=== PATIENT | female | born 1995 | race Two or more races ===

== ENCOUNTER 2017-05-13 20:51 | Emergency (ER) | payer MEDICAID, OTHER ==
[~2017-05-13] VITALS: Ht 162.6 cm; Wt 76.0 kg
[~2017-05-13 20:51] MED LIST: PRENAT PO
[2017-05-13 20:54] VITALS: Ht 162.6 cm; Wt 76.0 kg
[2017-05-13 23:13] LABS: URINE BLOOD (Dip) POC 3+ (NEGATIVE)
[2017-05-13 23:27] LABS: BASOPHILS % 0.4 % (0.0-2.0); EOSINOPHILS # 0.2 10^3/ul (0.0-0.5); EOSINOPHILS % 2.2 % (0.0-7.0); HEMATOCRIT 37.7 % (37.0-47.0); HEMOGLOBIN 12.4 g/dl (12.0-16.0); LYMPHOCYTES # 2.6 10^3/ul (0.8-2.9); LYMPHOCYTES % 33.2 % (18.0-55.0); MEAN CORPUSCULAR HEMOGLOBIN 28.8 pg (29.0-33.0); MEAN CORPUSCULAR HGB CONC 32.9 g/dl (32.0-37.0); MEAN CORPUSCULAR VOLUME 87.7 fl (72.0-104.0); MEAN PLATELET VOLUME 9.8 fl (7.4-10.4); MONOCYTE # 0.7 10^3/ul (0.3-0.9); MONOCYTES % 9.5 % (0.0-13.0); NEUTROPHIL # 4.2 10^3/ul (1.6-7.5); NEUTROPHILS % 54.4 % (30.0-74.0); PLATELET COUNT 291 10^3/UL (140-415); WHITE BLOOD COUNT 7.7 10^3/ul (4.8-10.8)
[2017-05-13 23:48] LABS: ALBUMIN 4.3 g/dl (3.3-4.9); ALBUMIN/GLOBULIN RATIO 1.19; BILIRUBIN,INDIRECT 0.1 mg/dl (0-1.1); BILIRUBIN,TOTAL 0.1 mg/dl (0.2-1.3); CALCIUM 9.6 mg/dl (8.4-10.2); CREATININE 0.64 mg/dl (0.44-1.00); TOTAL PROTEIN 7.9 g/dl (6.1-8.1)
--- NOTE | 2017-05-13 23:48 | ERD ---
ER Documentation Chief Complaint Date/Time DATE: 05/13/17 TIME: 23:45 Chief Complaint vag bleeding a3 weeks, denies HPI 21-year-old female complaining of vaginal bleeding 3 weeks. Received a copper IUD 3 weeks ago. Her vaginal bleeding started shortly after that. She is changing 1 pad an hour for the last 3 weeks. Patient reports shortness of breath on exertion, but denies fatigue. His chest pain or palpitations. Denies fever or chills. Denies dysuria. Denies pelvic pain. ROS All systems reviewed and are negative except as per history of present illness. Medications Home Meds Reported Medications Multivit/Min/Fol Ac/Iron/Pren* ( S*) 1 Tab Tab, 1 TAB PO DAILY, TAB 07/27/16 Allergies Allergies: Coded Allergies: No Known Allergy (Unverified , 07/27/16) PMhx/Soc Medical and Surgical Hx: pt denies Medical Hx, pt denies Surgical Hx Hx Alcohol Use: No Hx Substance Use: No Hx Tobacco Use: No Smoking Status: Never smoker Physical Exam Vitals Vital Signs Date Time Temp Pulse Resp B/P Pulse Ox O2 Delivery O2 Flow Rate FiO2 05/13/17 20:54 100.5 95 20 128/70 98 Physical Exam General: Well-developed, well-nourished, conscious and coherent, in no distress Skin: Warm and dry without rash, good texture and turgor Head: Normocephalic without evidence of trauma Eyes: Sclera and conjunctivae normal; pupils equal, round, and reactive to light; extraocular movements are intact Chest: Normal AP diameter. Good expansion without retractions. Nontender. Lungs are clear to auscultate bilaterally with good tidal volume Heart: Regular rate and rhythm. No murmur, rub, or gallops heard Abdomen: Soft and nontender without masses, guarding, or rebound. Bowel sounds are active. No hepatosplenomegaly Back: Without spinal or CVA tenderness Pelvis: Nontender to palpation and stable to compression Extremities: Full range of motion. Good strength bilaterally. No clubbing, cyanosis, or edema. Peripheral pulses are intact. Sensation intact Neuro: Alert and oriented 4, GCS 15. Cranial nerves grossly intact. Motor and sensory exams nonfocal. Moves all extremities. Speech clear. Gait normal Result Diagram: 05/13/172 05/13/172311 Results 24 hrs Laboratory Tests Test 05/13/17 23:12 05/13/17 23:21 White Blood Count 7.710^3/ul Red Blood Count 4.3010^6/ul Hemoglobin 12.4g/dl Hematocrit 37.7% Mean Corpuscular Volume 87.7fl Mean Corpuscular Hemoglobin 28.8pg Mean Corpuscular Hemoglobin Concent 32.9g/dl Red Cell Distribution Width 13.0% Platelet Count 71023^3/UL Mean Platelet Volume 9.8fl Neutrophils % 54.4% Lymphocytes % 33.2% Monocytes % 9.5% Eosinophils % 2.2% Basophils % 0.4% Nucleated Red Blood Cells % 0.0/100WBC Neutrophils # 4.210^3/ul Lymphocytes # 2.610^3/ul Monocytes # 0.710^3/ul Eosinophils # 0.210^3/ul Basophils # 0.010^3/ul Nucleated Red Blood Cells # 0.010^3/ul Sodium Level 139mmol/L Potassium Level 4.0mmol/L Chloride Level 105mmol/L Carbon Dioxide Level 25mmol/L Anion Gap 13 Blood Urea Nitrogen 17mg/dl Creatinine 0.64mg/dl Glucose Level 91mg/dl Calcium Level 9.6mg/dl Total Bilirubin 0.1mg/dl Direct Bilirubin 0.00mg/dl Indirect Bilirubin 0.1mg/dl Aspartate Amino Transf (AST/SGOT) 27IU/L Alanine Aminotransferase (ALT/SGPT) 54IU/L Alkaline Phosphatase 91IU/L Total Protein 7.9g/dl Albumin 4.3g/dl Globulin 3.60g/dl Albumin/Globulin Ratio 1.19 Bedside Urine pH (LAB) 6.0 Bedside Urine Protein (LAB) Trace Bedside Urine Glucose (UA) Negative Bedside Urine Ketones (LAB) Negative Bedside Urine Blood 3+ Bedside Urine Nitrite (LAB) Negative Bedside Urine Leukocyte Esterase (L Negative PROCEDURE: US Non-OB Pelvis. CLINICAL INDICATION: Vaginal bleeding. TECHNIQUE: Multiple sonographic images of the pelvis were obtained utilizing a transabdominal and endovaginal technique. The images were reviewed on a PACS workstation. COMPARISON: None. FINDINGS: The uterus is visualized and measures 10.1 x 3.7 x 5.1 cm. The endometrial echo complex is normal and measures 7 mm. There is an intrauterine device in appropriate position within the endometrial canal. The right ovary measures 4.0 x 2.3 x 1.9 cm. The left ovary measures 3.5 x 1.4 x 2.3 cm. Blood flow is demonstrated to both ovaries. There is a tubular structure in the left adnexa. There is a small volume of free fluid. IMPRESSION: 1. Intrauterine device in place within the endometrial canal. 2. Normal appearance of the ovaries. 3. Tubular structure in the left adnexa, possibly a hydrosalpinx. 4. Small volume free pelvic fluid. RPTAT: HTAR .Raji Joshi MD, MD Date Time Electronically viewed and signed by .Raji Joshi MD, on 05/14/2017 00:25 .R/ CC: DHAVAL GUIDO. INVENTORY CHECKER Procedures/MDM Well-appearing 21-year-old female presented to ED with vaginal bleeding 3 weeks. CBC and CMP are unremarkable. Patient does not have anemia. Urine dip is 3+ blood, likely due to vaginal bleeding, otherwise negative. Urine is negative. Pelvic ultrasound showed intrauterine device in place within the endometrial canal, normal appearance of the ovaries, tubular structure in the left adnexa possibly hydrosalpinx, small amount of free pelvic fluid. I doubt ectopic , or ruptured ovarian cyst. I informed patient of the testing results, and advised patient to follow-up with her PCP or digital account coordinator. I also counseled the patient that it is not uncommon to have irregular vaginal bleeding with a copper IUD. Patient appears well, stable for discharge and outpatient management. Medical decision making shared with patient and family. Education provided to patient and family. Patient and family expressed understanding of the plan. Medications on discharge: None. Follow-up: Primary care provider in 2-3 days or return to ED if worse. Disclaimer: Inadvertent spelling and grammatical errors are likely due to EHR/ dictation software use and do not reflect on the overall quality of patient care. Also, please note that the electronic time recorded on this note does not necessarily reflect the actual time of the patient encounter. Departure Diagnosis: Primary Impression: Excessive vaginal bleeding Condition: Stable DHAVAL GUIDO NP May 13, 2017 23:48
--- NOTE | 2017-05-14 00:25 | RADRPT ---
PROCEDURE: US Non-OB Pelvis. CLINICAL INDICATION: Vaginal bleeding. TECHNIQUE: Multiple sonographic images of the pelvis were obtained utilizing a transabdominal and endovaginal technique. The images were reviewed on a PACS workstation. COMPARISON: None. FINDINGS: The uterus is visualized and measures 10.1 x 3.7 x 5.1 cm. The endometrial echo complex is normal an d measures 7 mm. There is an intrauterine device in appropriate position within the endometrial katie l. The right ovary measures 4.0 x 2.3 x 1.9 cm. The left ovary measures 3.5 x 1.4 x 2.3 cm. Blood flow is demonstrated to both ovaries. There is a tubular structure in the left adnexa. There is a small volume of free fluid. IMPRESSION: 1. Intrauterine device in place within the endometrial canal. 2. Normal appearance of the ovaries. 3. Tubular structure in the left adnexa, possibly a hydrosalpinx. 4. Small volume free pelvic fluid. RPTAT: HTAR .Raji Joshi MD, Date Time Electronically viewed and signed by .Raji Joshi MD, on 05/14/2017 00:25 .R/
[2017-05-14] MEDS ORDERED: ACET500C5 PO (01:12)
== END 2017-05-14 01:14 | disposition home or self-care (01) ==
LOC: FTE 20:51
DX: N93.8 Other specified abnormal uterine and vaginal bleeding (principal)
CPT/HCPCS: 36415; 76830; 76856; 80053; 81003; 85025; Z7502

== ENCOUNTER 2017-05-15 13:51 | Inpatient (IN) | payer MEDICAID ==
[~2017-05-15] VITALS: Ht 193 cm; Wt 74.4 kg
[~2017-05-15 13:51] MED LIST changes: +ACET500C5 PO
[2017-05-15 15:33] LABS: BASOPHILS % 0.3 % (0.0-2.0); EOSINOPHILS % 0.2 % (0.0-7.0); HEMATOCRIT 36.1 % (37.0-47.0); LYMPHOCYTES # 1.6 10^3/ul (0.8-2.9); LYMPHOCYTES % 13.2 % (18.0-55.0); MEAN CORPUSCULAR HEMOGLOBIN 29.1 pg (29.0-33.0); MEAN CORPUSCULAR HGB CONC 33.2 g/dl (32.0-37.0); MEAN CORPUSCULAR VOLUME 87.6 fl (72.0-104.0); MEAN PLATELET VOLUME 9.9 fl (7.4-10.4); MONOCYTE # 0.6 10^3/ul (0.3-0.9); MONOCYTES % 5.1 % (0.0-13.0); NEUTROPHIL # 9.5 10^3/ul (1.6-7.5); NEUTROPHILS % 80.9 % (30.0-74.0); PLATELET COUNT 292 10^3/UL (140-415); RED BLOOD COUNT 4.12 10^6/ul (4.20-5.40); RED CELL DISTRIBUTION WIDTH 13.1 % (11.5-14.5); WHITE BLOOD COUNT 11.8 10^3/ul (4.8-10.8)
[2017-05-15 15:58] LABS: ADD UMIC YES; UR ASCORBIC ACID NEGATIVE (NEGATIVE); UR BACTERIA FEW /HPF (NONE SEEN); UR BILIRUBIN (Dip) NEGATIVE (NEGATIVE); UR BLOOD (Dip) 3+ mg/dL (NEGATIVE); UR CLARITY SLIGHTLY CLOUDY (CLEAR); UR COLOR YELLOW (YELLOW); UR GLUCOSE (Dip) NEGATIVE (NEGATIVE); UR KETONES (Dip) NEGATIVE (NEGATIVE); UR LEUKOCYTE ESTERASE (Dip) 2+ Leu/ul (NEGATIVE); UR NITRITE (Dip) NEGATIVE (NEGATIVE); UR RBC > 182 /HPF (0-5); UR SPECIFIC GRAVITY (Dip) 1.019 (1.003-1.030); UR SQUAMOUS EPITHELIAL CELL FEW /HPF (FEW); UR TOTAL PROTEIN (Dip) 2+ mg/dl (NEGATIVE); UR UROBILINOGEN (Dip) 2+ mg/dL (NEGATIVE)
--- NOTE | 2017-05-15 16:22 | RADRPT ---
PROCEDURE: US Pelvis. CLINICAL INDICATION: Pelvic pain. Post IUD removal. Vaginal bleeding. LAST MENSTRUAL PERIOD: TECHNIQUE: Multiple sonographic images of the pelvis were obtained utilizing a transabdominal and endovaginal technique. COMPARISON: 05/13/2017 FINDINGS: The uterus is visualized and measures 8.5 x 3.5 x 5.4 cm. Intrauterine device has been removed. The endometrial echo complex is normal and measures 2.1 mm. Small amount of echogenic pelvic free fluid consistent with blood. Left adnexal echogenic non vascular fluid collection consistent with a hemato ma measuring 6.4 x 2.6 x 5.7 cm. The right ovary has a normal echotexture and measures 3.6 x 2.0 x 1.7 cm. The left ovary has a norm al echotexture and measures 3.6 x 2.7 x 2.2 cm. No adnexal masses are noted. Normal bilateral ovari an blood flow. IMPRESSION: Small amount of echogenic free fluid in the pelvis consistent with blood. Echogenic fluid collection left adnexa measuring 6.4 cm consistent with a hematoma. Intrauterine device is then removed. Normal bilateral ovarian blood flow. RPTAT:AAJJ Physician Geovanny Date Time Electronically viewed and signed by Physician Geovanny on 05/15/2017 16:22 /
[2017-05-15 17:45] LABS: ALBUMIN 4.2 g/dl (3.3-4.9); ALBUMIN/GLOBULIN RATIO 1.05; BILIRUBIN,INDIRECT 0.2 mg/dl (0-1.1); BILIRUBIN,TOTAL 0.2 mg/dl (0.2-1.3); CALCIUM 9.2 mg/dl (8.4-10.2); CREATININE 0.62 mg/dl (0.44-1.00); TOTAL PROTEIN 8.2 g/dl (6.1-8.1)
[2017-05-15] MEDS ORDERED: IOHEXOL 300MG/ML 150 ML BTL ONE (18:24)
[2017-05-15] MEDS ORDERED: SOD CHLORIDE 0.9% 100 ML ONE (18:24)
--- NOTE | 2017-05-15 18:46 | ERD ---
ER Documentation Chief Complaint Date/Time DATE: 05/15/17 TIME: 18:42 Chief Complaint removed iud today, wants us HPI Patient is 21-year-old female who presents to the emergency department for concerns concerns of pelvic pain and vaginal bleeding. Patient states she saw her primary care physician today who advised her to come in for an ultrasound after having an IUD removed today. Patient initially had an IUD placed on . Given that patient has had bleeding for the last month, she went to see her primary care today to remove the IUD. Denies any fevers however she admits to chills. Denies nausea, vomiting or diarrhea. States she uses approximately 3-5 pads per day. Patient is today she has changed her pad twice thus far. Patient denies any dizziness or lightheadedness. Of note, patient was seen here 2 days ago. At that time patient had blood work and ultrasound done. Ultrasound findings show: 1. Intrauterine device in place within the endometrial canal. 2. Normal appearance of the ovaries. 3. Tubular structure in the left adnexa, possibly a hydrosalpinx. 4. Small volume free pelvic fluid. ROS All systems reviewed and are negative except as per history of present illness. Medications Home Meds Active Scripts Acetaminophen* (Tylophen*) 500 Mg Capsule, 1 CAP PO Q6H Y for PAIN AND OR ELEVATED TEMP, #20 CAP Prov:DHAVAL GUIDO SUSTAINABILITY ANALYST 05/14/17 Reported Medications Multivit/Min/Fol Ac/Iron/Pren* ( S*) 1 Tab Tab, 1 TAB PO DAILY, TAB 07/27/16 Allergies Allergies: Coded Allergies: No Known Allergy (Unverified , 07/27/16) PMhx/Soc Medical and Surgical Hx: pt denies Medical Hx, pt denies Surgical Hx Hx Alcohol Use: No Hx Substance Use: No Hx Tobacco Use: No Smoking Status: Never smoker Physical Exam Vitals Vital Signs Date Time Temp Pulse Resp B/P Pulse Ox O2 Delivery O2 Flow Rate FiO2 05/15/17 20:31 100.4 89 18 106/56 98 Room Air 05/15/17 13:53 98.1 90 18 108/58 99 Physical Exam GENERAL: Well-developed, well-nourished female. Appears in no acute distress. HEAD: Normocephalic, atraumatic. EYES: Pupils are equally reactive bilaterally. EOMs grossly intact. No conjunctival erythema. ENT: Moist mucous membranes. No uvula deviation. No kissing tonsils. NECK: Supple. No meningismus. Normal range of motion of the neck. LUNG: Clear to auscultation bilaterally. No rhonchi, wheezing, rales or coarse breath sounds. HEART: Regular rate and rhythm. No murmurs, rubs or gallops. ABDOMEN: No scars, ecchymosis or rashes noted. Soft and nondistended. Tender to palpation in the bilateral lower quadrants and suprapubic region. Positive bowel sounds in all four quadrants. No rebound tenderness, no guarding. (-) McBurney's point tenderness. No CVA tenderness. BACK: No midline tenderness. EXTREMITIES: Equal pulses bilaterally. No peripheral clubbing, cyanosis or edema. No unilateral leg swelling. NEUROLOGIC: Alert and oriented. Moving all four extremities without any difficulty. Normal speech. Steady gait. SKIN: Normal color. No pallor. Warm and dry. No rashes or lesions. Result Diagram: 05/15/17 1930 05/15/17 1708 Results 24 hrs Laboratory Tests Test 05/15/17 15:13 05/15/17 17:08 05/15/17 19:30 White Blood Count 11.810^3/ul 12.810^3/ul Red Blood Count 4.1210^6/ul 4.0110^6/ul Hemoglobin 12.0g/dl 11.0g/dl Hematocrit 36.1% 34.7% Mean Corpuscular Volume 87.6fl 86.5fl Mean Corpuscular Hemoglobin 29.1pg 27.4pg Mean Corpuscular Hemoglobin Concent 33.2g/dl 31.7g/dl Red Cell Distribution Width 13.1% 13.3% Platelet Count 93797^3/UL 37081^3/UL Mean Platelet Volume 9.9fl 9.9fl Neutrophils % 80.9% 68.6% Lymphocytes % 13.2% 22.6% Monocytes % 5.1% 7.4% Eosinophils % 0.2% 0.6% Basophils % 0.3% 0.4% Nucleated Red Blood Cells % 0.0/100WBC 0.0/100WBC Neutrophils # 9.510^3/ul 8.810^3/ul Lymphocytes # 1.610^3/ul 2.910^3/ul Monocytes # 0.610^3/ul 1.010^3/ul Eosinophils # 0.010^3/ul 0.110^3/ul Basophils # 0.010^3/ul 0.110^3/ul Nucleated Red Blood Cells # 0.010^3/ul 0.010^3/ul Urine Color YELLOW Urine Clarity SLIGHTLY CLOUDY Urine pH 8.0 Urine Specific [employer] 1.019 Urine Ketones NEGATIVEmg/dL Urine Nitrite NEGATIVEmg/dL Urine Bilirubin NEGATIVEmg/dL Urine Urobilinogen 2+mg/dL Urine Leukocyte Esterase 2+Yenny/ul Urine Microscopic RBC > 182/HPF Urine Microscopic WBC 69/HPF Urine Squamous Epithelial Cells FEW/HPF Urine Calcium Oxalate Crystals FEW/HPF Urine Bacteria FEW/HPF Urine Hemoglobin 3+mg/dL Urine Glucose NEGATIVEmg/dL Urine Total Protein 2+mg/dl Sodium Level 140mmol/L Potassium Level 4.0mmol/L Chloride Level 106mmol/L Carbon Dioxide Level 25mmol/L Anion Gap 13 Blood Urea Nitrogen 9mg/dl Creatinine 0.62mg/dl Glucose Level 111mg/dl Calcium Level 9.2mg/dl Total Bilirubin 0.2mg/dl Direct Bilirubin 0.00mg/dl Indirect Bilirubin 0.2mg/dl Aspartate Amino Transf (AST/SGOT) 24IU/L Alanine Aminotransferase (ALT/SGPT) 49IU/L Alkaline Phosphatase 102IU/L Total Protein 8.2g/dl Albumin 4.2g/dl Globulin 4.00g/dl Albumin/Globulin Ratio 1.05 Current Medications Medications (Trade) Dose Ordered Sig/Ravi Route PRN Reason Start Time Stop Time Status Last Admin Dose Admin IV Flush 10 ml 10 ml STK-MED ONCE .ROUTE 05/15/17 18:24 05/15/17 18:25 DC 05/15/17 18:31 Sodium Chloride (NS) 100 ml @ ud STK-MED ONCE .ROUTE 05/15/17 18:24 05/15/17 18:25 DC 05/15/17 18:31 Iohexol (Omnipaque 300mg/ ml) 150 ml STK-MED ONCE .ROUTE 05/15/17 18:24 05/15/17 18:25 DC 05/15/17 18:32 Acetaminophen (Tylenol Tab) 1,000 mg ONCE STAT PO 05/15/17 20:25 05/15/17 20:27 DC 05/15/17 20:33 IV Flush (NS 3 ml) 3 ml PER PROTOCOL IV 05/15/17 20:30 Morphine Sulfate 2 mg 2 mg Q4H PRN IV SEVERE PAIN LEVEL 7-10 05/15/17 20:30 Lactated Ringer's (Lr) 1,000 ml @ 125 mls/hr Q8H IV 05/15/17 20:30 Doxycycline Hyclate 100 mg 100 mg BID PO 05/15/17 21:00 Cefuroxime Sodium/ Sodium Chloride (Zinacef/NS) 50 ml @ 100 mls/hr Q8 IVPB 05/15/17 22:00 Procedures/MDM ED COURSE: The patient was stable throughout ED course. I kept the patient and/or family informed of laboratory and diagnostic imaging results throughout the ED course. DIAGNOSTIC IMAGING: Read by radiologist. Patient: HERNÁN SNIDER : 1995 Age: 21 Sex: F MR #: [id number] DOS: 05/15/17 1505 Ordering MD: KATHARINE ZARCO PA-C Location: [facility] Room/Bed: PROCEDURE: US Pelvis. CLINICAL INDICATION: Pelvic pain. Post IUD removal. Vaginal bleeding. LAST MENSTRUAL PERIOD: TECHNIQUE: Multiple sonographic images of the pelvis were obtained utilizing a transabdominal and endovaginal technique. COMPARISON: 05/13/2017 FINDINGS: The uterus is visualized and measures 8.5 x 3.5 x 5.4 cm. Intrauterine device has been removed. The endometrial echo complex is normal and measures 2.1 mm. Small amount of echogenic pelvic free fluid consistent with blood. Left adnexal echogenic non vascular fluid collection consistent with a hematoma measuring 6.4 x 2.6 x 5.7 cm. The right ovary has a normal echotexture and measures 3.6 x 2.0 x 1.7 cm. The left ovary has a normal echotexture and measures 3.6 x 2.7 x 2.2 cm. No adnexal masses are noted. Normal bilateral ovarian blood flow. IMPRESSION: Small amount of echogenic free fluid in the pelvis consistent with blood. Echogenic fluid collection left adnexa measuring 6.4 cm consistent with a hematoma. Intrauterine device is then removed. Normal bilateral ovarian blood flow. RPTAT:AAJJ Physician Geovanny Date Time Electronically viewed and signed by Garth Hardin Physician on 05/15/2017 16 :22 MH/ CC: KATHARINE ZARCO PA-C Patient: HERNÁN SNIDER : 1995 Age: 21 Sex: F MR #: [id number] DOS: 05/15/17 1644 Ordering MD: KATHARINE ZARCO PA-C Location: [facility] Room/Bed: PROCEDURE: CT Abdomen and Pelvis with contrast. CLINICAL INDICATION: Abdomen and pelvis pain. History of hematoma. TECHNIQUE: CT scan of the abdomen and pelvis with contrast was performed. The patient was scanned following the uncomplicated intravenous administration of 100 cc of Omnipaque-300. Coronal and sagittal reformatted images were obtained from the axial source images. Images were reviewed on a high- resolution PACS workstation. Total exam DLP is 590.19 mGy-cm. CTDIvol is 10.56 mGy. One or more of the following dose reduction techniques were used: Automated exposure control, adjustment of the mA and/or kV according to patient size, use of iterative reconstruction technique. COMPARISON: Pelvic ultrasound done earlier the same day which demonstrated an echogenic fluid collection in the left adnexa measuring 6.4 cm. FINDINGS: The lung bases are normal. There is no pleural effusion. The liver is normal in size and attenuation. There is no focal hepatic lesion. The gallbladder and bile ducts are normal. The spleen is normal in size. There is no focal splenic lesion. Both adrenals are normal with no enlargement or mass. The pancreas is unremarkable with no mass or evidence of pancreatitis. Both kidneys demonstrate normal contrast enhancement. There is no renal mass or hydronephrosis. The abdominal aorta is not dilated. There is no retroperitoneal lymphadenopathy or mass. There is no pelvic lymphadenopathy. There is a left adnexal fluid collection measuring 3.7 x 6.2 x 3.6 cm in AP, transverse, and cranial caudal dimensions. There is irregular peripheral enhancement. There is no other pelvic mass. The urinary bladder is distended but otherwise unremarkable. The periappendiceal region is unremarkable with no evidence of appendicitis. The bowel and mesentery are normal. There is no free fluid or free gas. The osseous structures are unremarkable with no fracture or lytic lesion. IMPRESSION: 1. Distended urinary bladder. 2. Left adnexal fluid collection measuring 3.7 x 6.2 x 3.6 cm, with irregular peripheral enhancement. This may be due to hematoma, abscess, or neoplasm. Clinical correlation and follow up is advised. 3. Otherwise unremarkable study. RPTAT: QQ .Andrew Hdz MD, MD Date Time Electronically viewed and signed by .Andrew Hdz MD, MD on 05/15/2017 19:12 .R/ CC: KATHARINE ZARCO PA-C PROCEDURES: None. MEDICATIONS GIVEN: Tylenol Patient tolerated medication well with no adverse reactions. MEDICAL DECISION MAKING: Patient is a 21-year-old female who presents to the ED for concerns of ongoing vaginal bleeding for 1 month and pelvic pain. Patient had her IUD removed this morning by her primary care physician. Patient returns to the ED for pelvic ultrasound per the request of her primary care physician. Vital signs were reviewed. Patient was afebrile on initial presentation. Patient was not hypoxic. Patient was hemodynamically stable. Blood work and imaging studies were obtained. Patient was noted to have a slight elevated white count of 12.8. Patient's hemoglobin was initially noted to be 12. test was negative. UA showed findings consistent with an acute infection. Pelvic ultrasound showed Small amount of echogenic free fluid in the pelvis consistent with blood. Echogenic fluid collection left adnexa measuring 6.4 cm consistent with a hematoma. Intrauterine device is then removed. Normal bilateral ovarian blood flow. I discussed these findings with the laborist search optimization analyst Dr. Gibson, who advised me to obtain a repeat CBC in [address] abdomen and pelvis with IV contrast. After 4 hours her hemoglobin was noted to be 11. CT abdomen and pelvis showed 1. Distended urinary bladder. 2. Left adnexal fluid collection measuring 3.7 x 6.2 x 3.6 cm, with irregular peripheral enhancement. This may be due to hematoma, abscess, or neoplasm. Clinical correlation and follow up is advised. 3. Otherwise unremarkable study. Dr. Gibson examined the patient here in the ER. It was determined that patient will be admitted given unclear etiology of the patient's pelvic pain and persistent vaginal bleeding. Low suspicion for perforated uterus, retained foreign body. Patient will need further monitoring of her hemoglobin levels. Patient will also be admitted for IV antibiotics. At this time, patient presentation is most consistent with pelvic pain, vaginal bleeding and UTI. Patient was stable throughout the ED course. I spoke to Dr. Howard, my supervising physician, who is aware of admission as well. Departure Diagnosis: Primary Impression: Vaginal bleeding Additional Impressions: Pelvic pain UTI (urinary tract infection) Urinary tract infection type: site unspecified Hematuria presence: with hematuria Qualified Code: N39.0 - Urinary tract infection with hematuria, site unspecified Condition: Stable Referrals: CAN BEDOYA MD (PCP) [facility] YOU HAVE RECEIVED A MEDICAL SCREENING EXAM AND THE RESULTS INDICATE THAT YOU DO NOT HAVE A CONDITION THAT REQUIRES URGENT TREATMENT IN THE EMERGENCY DEPARTMENT. FURTHER EVALUATION AND TREATMENT OF YOUR CONDITION CAN WAIT UNTIL YOU ARE SEEN IN YOUR DOCTORS OFFICE WITHIN THE NEXT 1-2 DAYS. IT IS YOUR RESPONSIBILITY TO MAKE AN APPOINTMENT FOR FOLOW-UP CARE. IF YOU HAVE A PRIMARY DOCTOR --you should call your primary doctor and schedule an appointment IF YOU DO NOT HAVE A PRIMARY DOCTOR YOU CAN CALL OUR PHYSICIAN REFERRAL HOTLINE AT IF YOU CAN NOT AFFORD TO SEE A PHYSICIAN YOU CAN CHOSE FROM THE FOLLOWING [facility]LY [facility] [address] [facility] [address] [facility] [facility] [address] [facility] [address] [facility] [address] [facility]. [facility]. [address] [facility]. [facility] YOU HAVE RECEIVED A MEDICAL SCREENING EXAM AND THE RESULTS INDICATE THAT YOU DO NOT HAVE A CONDITION THAT REQUIRES URGENT TREATMENT IN THE EMERGENCY DEPARTMENT. FURTHER EVALUATION AND TREATMENT OF YOUR CONDITION CAN WAIT UNTIL YOU ARE SEEN IN YOUR DOCTORS OFFICE WITHIN THE NEXT 1-2 DAYS. IT IS YOUR RESPONSIBILITY TO MAKE AN APPOINTMENT FOR FOLOW-UP CARE. IF YOU HAVE A PRIMARY DOCTOR --you should call your primary doctor and schedule and appointment IF YOU DO NOT HAVE A PRIMARY DOCTOR YOU CAN CALL OUR PHYSICIAN REFERRAL HOTLINE AT . IF YOU CAN NOT AFFORD TO SEE A PHYSICIAN YOU CAN CHOSE FROM THE FOLLOWING FORMERLY [facility] INSTITUTIONS: [facility] [address] [place] [address] [facility] [address] [place] [address] [facility] [address] [place] [address] [employer] [place] [address] [facility] [address] [place] [address] OFFICE FAX , [address] [place] [address] [address] [place] [address] [place] [address] [address] [address] [facility], [address], [facility] [address] [address] [address] [place] [address] [facility] [address] [place], [place] [id number] [address] [facility] [address] [address] [facility] [address] [address] [address] [facility] [address], [facility] [address] [address] [address] [place] [address] Additional Instructions: Call your primary care doctor/ OBGYN TOMORROW for an appointment during the next 1-2 days.See the doctor sooner or return here if your condition worsens before your appointment time. KATHARINE ZARCO PA-C May 15, 2017 18:46
--- NOTE | 2017-05-15 19:12 | RADRPT ---
PROCEDURE: CT Abdomen and Pelvis with contrast. CLINICAL INDICATION: Abdomen and pelvis pain. History of hematoma. TECHNIQUE: CT scan of the abdomen and pelvis with contrast was performed. The patient was scanned following the uncomplicated intravenous administration of 100 cc of Omnipaque-300. Coronal and sag ittal reformatted images were obtained from the axial source images. Images were reviewed on a high- resolution PACS workstation. Total exam DLP is 590.19 mGy-cm. CTDIvol is 10.56 mGy. One or more o f the following dose reduction techniques were used: Automated exposure control, adjustment of the m A and/or kV according to patient size, use of iterative reconstruction technique. COMPARISON: Pelvic ultrasound done earlier the same day which demonstrated an echogenic fluid thao ection in the left adnexa measuring 6.4 cm. FINDINGS: The lung bases are normal. There is no pleural effusion. The liver is normal in size and attenuation. There is no focal hepatic lesion. The gallbladder and bile ducts are normal. The spleen is normal in size. There is no focal splenic lesion. Both adrenals are normal with no enlargement or mass. The pancreas is unremarkable with no mass or evidence of pancreatitis. Both kidneys demonstrate normal contrast enhancement. There is no renal mass or hydronephrosis. The abdominal aorta is not dilated. There is no retroperitoneal lymphadenopathy or mass. There is no pelvic lymphadenopathy. There is a left adnexal fluid collection measuring 3.7 x 6.2 x 3 .6 cm in AP, transverse, and cranial caudal dimensions. There is irregular peripheral enhancement. T here is no other pelvic mass. The urinary bladder is distended but otherwise unremarkable. The periappendiceal region is unremarkable with no evidence of appendicitis. The bowel and mesentery are normal. There is no free fluid or free gas. The osseous structures are unremarkable with no fracture or lytic lesion. IMPRESSION: 1. Distended urinary bladder. 2. Left adnexal fluid collection measuring 3.7 x 6.2 x 3.6 cm, with irregular peripheral enhancemen t. This may be due to hematoma, abscess, or neoplasm. Clinical correlation and follow up is advised. 3. Otherwise unremarkable study. RPTAT: QQ .Andrew Hdz MD, Date Time Electronically viewed and signed by .Andrew Hdz MD, MD on 05/15/2017 19:12 .R/
[2017-05-15 19:42] LABS: BASOPHIL # 0.1 10^3/ul (0.0-0.1); BASOPHILS % 0.4 % (0.0-2.0); EOSINOPHILS # 0.1 10^3/ul (0.0-0.5); EOSINOPHILS % 0.6 % (0.0-7.0); HEMATOCRIT 34.7 % (37.0-47.0); LYMPHOCYTES # 2.9 10^3/ul (0.8-2.9); LYMPHOCYTES % 22.6 % (18.0-55.0); MEAN CORPUSCULAR HEMOGLOBIN 27.4 pg (29.0-33.0); MEAN CORPUSCULAR HGB CONC 31.7 g/dl (32.0-37.0); MEAN CORPUSCULAR VOLUME 86.5 fl (72.0-104.0); MEAN PLATELET VOLUME 9.9 fl (7.4-10.4); MONOCYTES % 7.4 % (0.0-13.0); NEUTROPHIL # 8.8 10^3/ul (1.6-7.5); NEUTROPHILS % 68.6 % (30.0-74.0); PLATELET COUNT 294 10^3/UL (140-415); RED BLOOD COUNT 4.01 10^6/ul (4.20-5.40); RED CELL DISTRIBUTION WIDTH 13.3 % (11.5-14.5); WHITE BLOOD COUNT 12.8 10^3/ul (4.8-10.8)
[2017-05-15] MEDS ORDERED: ACETAMINOPHEN 500 MG TAB PO STA (20:25)
[2017-05-15] MEDS ORDERED: NACL 0.9% 3 ML SYG IV SCH (20:30)
[2017-05-15] MEDS: LACTATED RINGER'S 1,000 ML IV SCH (20:30)
--- NOTE | 2017-05-15 20:53 | QN ---
Documentation Comment My independent concise history is abdominal pain. My pertinent physical exam findings are abdominal pain. The plan is admission to Dr. Gibson from [employer] [facility]. JOSELINE TURNER MD May 15, 2017 20:53
[2017-05-15] MEDS: CEFUROXIME IVPB SCH (21:30)
[2017-05-15] MEDS: SOD CHLORIDE 0.9% IVPB SCH (21:30)
[2017-05-15] MEDS: DOXYCYCLINE 100 MG TAB PO SCH (21:30)
[2017-05-15 21:42] VITALS: TEMP 98.4
[2017-05-15] MEDS: morphine 2 MG INJ IV PRN (22:24)
[2017-05-15] MEDS ORDERED: VITAMIN A & D 5 GM OINT PACKET TOP ONE (22:59)
[2017-05-15 23:00] VITALS: BP 102/61; RESP 20
[2017-05-15 23:05] VITALS: Ht 193 cm; Wt 74.4 kg
[2017-05-16] VITALS (20 sets, daily range): BP systolic 103–147; BP diastolic 55–94; PULSE 74–98; RESP 16–26
[2017-05-16 00:21] LABS: WHITE BLOOD COUNT 9.9 10^3/ul (4.8-10.8)
[2017-05-16 00:22] LABS: BASOPHILS % 0.4 % (0.0-2.0); EOSINOPHILS # 0.1 10^3/ul (0.0-0.5); EOSINOPHILS % 1.4 % (0.0-7.0); HEMOGLOBIN 10.7 g/dl (12.0-16.0); LYMPHOCYTES # 3.1 10^3/ul (0.8-2.9); LYMPHOCYTES % 31.6 % (18.0-55.0); MEAN CORPUSCULAR HEMOGLOBIN 28.3 pg (29.0-33.0); MEAN CORPUSCULAR HGB CONC 32.4 g/dl (32.0-37.0); MEAN CORPUSCULAR VOLUME 87.3 fl (72.0-104.0); MEAN PLATELET VOLUME 9.7 fl (7.4-10.4); MONOCYTE # 0.8 10^3/ul (0.3-0.9); MONOCYTES % 7.9 % (0.0-13.0); NEUTROPHIL # 5.8 10^3/ul (1.6-7.5); NEUTROPHILS % 58.4 % (30.0-74.0); PLATELET COUNT 263 10^3/UL (140-415); RED BLOOD COUNT 3.78 10^6/ul (4.20-5.40); RED CELL DISTRIBUTION WIDTH 13.2 % (11.5-14.5)
[2017-05-16] MEDS: LACTATED RINGER'S 1,000 ML IV SCH ×4 (04:30→20:30)
[2017-05-16] MEDS: CEFUROXIME IVPB SCH ×3 (05:21→22:36)
[2017-05-16] MEDS: SOD CHLORIDE 0.9% IVPB SCH ×3 (05:21→22:36)
[2017-05-16 08:21] LABS: BASOPHILS % 0.5 % (0.0-2.0); EOSINOPHILS # 0.1 10^3/ul (0.0-0.5); EOSINOPHILS % 1.6 % (0.0-7.0); HEMATOCRIT 34.1 % (37.0-47.0); HEMOGLOBIN 10.9 g/dl (12.0-16.0); LYMPHOCYTES # 2.3 10^3/ul (0.8-2.9); LYMPHOCYTES % 25.9 % (18.0-55.0); MEAN CORPUSCULAR HEMOGLOBIN 28.2 pg (29.0-33.0); MEAN CORPUSCULAR VOLUME 88.1 fl (72.0-104.0); MEAN PLATELET VOLUME 9.7 fl (7.4-10.4); MONOCYTE # 0.7 10^3/ul (0.3-0.9); MONOCYTES % 7.6 % (0.0-13.0); NEUTROPHIL # 5.6 10^3/ul (1.6-7.5); NEUTROPHILS % 64.1 % (30.0-74.0); PLATELET COUNT 265 10^3/UL (140-415); RED BLOOD COUNT 3.87 10^6/ul (4.20-5.40); RED CELL DISTRIBUTION WIDTH 13.2 % (11.5-14.5); WHITE BLOOD COUNT 8.8 10^3/ul (4.8-10.8)
[2017-05-16] MEDS: DOXYCYCLINE 100 MG TAB PO SCH ×2 (09:23→20:41)
--- NOTE | 2017-05-16 12:50 | QN ---
Documentation Comment 21 yo with 3x4 cm hemorragic cyst vs TA vs hydrosalpix vs TOA VS stable GEn NAD Abd soft NT ND Genitalia Deffered CT and ultrasound reviewed --->close Observation --->continue Antibiotics --->repeat CT scan tomorrow and possible discharge CRISELDA MENDIETA M.D. May 16, 2017 12:50
--- NOTE | 2017-05-16 13:27 | QN ---
Documentation Comment 21 yo with 3x4x 6 cm left adnexal mass and collection admitted last night in [employer] [facility] VS stable GEn NAD Abd soft Left lower quadrant tenderness +Rebound Genitalia Deffered CT and ultrasound reviewed --->NPO and Oncall to OR (possible diagnosis of hemorrhagic cyst vs torsion vs Abscess --->Consent for laparoscopy CRISELDA MENDIETA M.D. May 16, 2017 13:27
[2017-05-16] MEDS ORDERED: FENTAnyl 50 MCG/ML VIAL IV PRN (14:30)
[2017-05-16] MEDS ORDERED: ONDANSETRON 4 MG INJ IV PRN (14:30)
[2017-05-16] MEDS ORDERED: HYDROmorphONE (0.2 MG/ML) 10ML SYG IV PRN ×2 (14:30)
[2017-05-16] MEDS ORDERED: OXYCODONE/ACETAMINOPHEN (5/325) TAB PO PRN ×2 (14:30)
[2017-05-16] MEDS ORDERED: PROCHLORPERAZINE 10 MG INJ IV PRN (14:30)
[2017-05-16] MEDS ORDERED: DIPHENHYDRAMINE 50 MG INJ IV PRN (14:30)
[2017-05-16] MEDS ORDERED: MEPERIDINE 25 MG INJ IV PRN (14:30)
[2017-05-16] MEDS ORDERED: FENTAnyl 50 MCG/ML VIAL ONE ×2 (14:45→16:13)
[2017-05-16] MEDS ORDERED: PROPOFOL 20 ML ONE (14:45)
[2017-05-16] MEDS ORDERED: LIDOCAINE 2% (SDV) 5 ML INJ ONE (14:45)
[2017-05-16] MEDS ORDERED: MIDAZOLAM 1 MG/ML 2 ML INJ ONE (14:45)
[2017-05-16] MEDS ORDERED: SUCCINYLCHOLINE CHLORIDE 100 MG/5 ML SYG IV ONE (14:45)
[2017-05-16] MEDS ORDERED: METOCLOPRAMIDE 10 MG INJ ONE (15:51)
[2017-05-16] MEDS ORDERED: ONDANSETRON 4 MG INJ ONE (15:51)
[2017-05-16] MEDS ORDERED: PHENYLephrine (100 MCG/ML) 5ML SYG ONE (15:59)
[2017-05-16] MEDS ORDERED: ROCURONIUM 50 MG INJ ONE (16:00)
[2017-05-16] MEDS ORDERED: DEXAMETHASONE 4 MG/ML 1 ML INJ ONE (16:36)
[2017-05-16] MEDS ORDERED: SUGAMMADEX SODIUM 200 MG/2 ML VIAL IV ONE (16:43)
[2017-05-16] MEDS ORDERED: SURGIFOAM POWDER 1 GM KIT ONE (16:44)
[2017-05-16] MEDS ORDERED: THROMBIN 5000 UNIT VIAL ONE (16:44)
--- NOTE | 2017-05-16 17:26 | OPPN ---
Date/Time of Note Date/Time of Note DATE: 05/16/17 TIME: 17:20 Operative Report Preoperative Diagnosis Possible Left Ovarian torsion,Possible Left TOA Postoperative Diagnosis Left Tuboovarian abscess.Left Hydrosalpinx Operation/Procedure Performed Fransico Surgeon see signature line executive personal assistant Tech Anesthesia: general Estimated blood loss: 0 - 10 ml's Transfusion Required none Specimen Left Fallopian tube and abscess Grafts/Implants none Complications none CRISELDA MENDIETA M.D. May 16, 2017 17:26
[2017-05-16] MEDS: morphine 2 MG INJ IV PRN (18:33)
[2017-05-17] VITALS: BP 117/63; RESP 19
[2017-05-17] MEDS: LACTATED RINGER'S 1,000 ML IV SCH ×5 (02:18→20:30)
[2017-05-17] MEDS: morphine 2 MG INJ IV PRN ×3 (02:18→17:39)
[2017-05-17 03:47] VITALS: BP 123/69; RESP 19
[2017-05-17] MEDS ORDERED: OXYCODONE/ACETAMINOPHEN (5/325) TAB PO PRN (04:00)
[2017-05-17] MEDS: OXYCODONE/ACETAMINOPHEN (5/325) TAB PO PRN ×3 (04:02→22:21)
[2017-05-17] MEDS: SOD CHLORIDE 0.9% IVPB SCH ×3 (05:37→21:37)
[2017-05-17] MEDS: CEFUROXIME IVPB SCH ×3 (05:37→21:37)
--- NOTE | 2017-05-17 07:11 | HP ---
DATE OF ADMISSION: 05/15/2017 HISTORY OF PRESENT ILLNESS: The patient is a 21-year-old, G2, P2, last menstrual period approximate ly , who presents to hospital complaining of abdominal pain and vaginal bleeding. The patient states in early April she had a copper IUD placed. 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 Patient was seen in the emergency room 2 days ago for abdominal pain and bleeding. Had an u ltrasound that showed a tubular structure in the left adnexa. No other complications. The patient was discharged home. Patient continued to have abdominal pain and was seen by her primary care doct or who removed the IUD and sent her to the hospital for further evaluation. The patient presents to hospital complaining of some abdominal pain and nausea, vomiting, fevers, chills with some minimal vaginal bleeding. PHYSICAL EXAMINATION: VITAL SIGNS: Temperature 98.1, pulse 90, blood pressure 108/58. HEART: Regular rhythm. CHEST: bilaterally. ABDOMEN: Soft, nontender; no rebound or guarding. EXTREMITIES: There is no edema. DIAGNOSTIC DATA: Ultrasound done shows a 6.5 cm possible hematoma in the left adnexa. CT scan show s a 3 x 6 cm fluid collection in the left adnexa, irregular peripheral enhancement, negative hematom a or abscess. ASSESSMENT: A 21-year-old status post intrauterine device removal, now with a left adnexal fluid co llection, possible hematoma versus abscess. PLAN: The patient will be admitted, started on IV antibiotics, cefoxitin and doxycycline. CBC seri als will be done. I explained to the patient that if her H and H drops, meaning the patient is blee ding, the patient will need a diagnostic laparoscopy to determine the source of the bleeding. Howev er, if the patient is stable, we will continue IV antibiotics and possible IR drainage of the absces s versus hematoma tomorrow. The patient understands the reason for hospital admission. All questio ns were answered and the patient again admitted to the hospital for possible TOA versus pelvic hemat saba. Dictated By: DENNIS ALVAREZ MD /NTS Conf#: [id number] DID#: [id number]
[2017-05-17 07:22] VITALS: BP 111/58; RESP 18
--- NOTE | 2017-05-17 07:41 | PREOPHP ---
DATE OF ADMISSION: 05/15/2017 HISTORY OF PRESENT ILLNESS: The patient is 21-year-old 0, para 0 who was admitted last nigh t with diagnosis of possible tubo-ovarian abscess versus hematoma in the left adnexa. Patient had r ecent removal of the IUD in her private physician's office and admitted to the emergency room with a bdominal pain. PAST MEDICAL HISTORY: Denies. PAST SURGICAL HISTORY: Denies. ALLERGIES: NKDA. PHYSICAL EXAMINATION: VITAL SIGNS: Stable. GENERAL: Normal. ABDOMEN: Tender in the left lower quadrant and positive rebound on that side. GENITALIA: No blood in the vaginal vault and normal exam. Ultrasound showed a left adnexal collection or mass by the size of 3 x 4 x 6 cm. Given the fact sharonda t she has tenderness on the left adnexa, also she has a mass, we cannot rule out the possible diagno sis of torsion versus a tubo-ovarian abscess versus hematoma. We take her for operative laparoscopy , possible salpingo-oophorectomy, possible ovarian cystectomy and possible laparotomy. The patient was extensively discussed about risks and benefits. The patient signed the consent and was taken to the operating room. Dictated By: CRISELDA MERCEDES/CELSO Conf#: [id number] DID#: [id number]
[2017-05-17] MEDS ORDERED: VITAMIN A & D 5 GM OINT PACKET TOP ONE (07:44)
--- NOTE | 2017-05-17 07:49 | HP ---
DATE OF ADMISSION: 05/15/2017 Correction to the previous dictated H and P. HISTORY OF PRESENT ILLNESS: This is a 21-year-old 2, para 2, admitted through the emergency room with abdominal pain. Patient is menstruating . PAST MEDICAL HISTORY: Denies. PAST SURGICAL HISTORY: One previous . ALLERGIES: NKDA. PHYSICAL EXAMINATION: VITAL SIGNS: Stable. GENERAL: Normal. ABDOMEN: She had left lower quadrant tenderness and positive rebound. GENITALIA: She had 1 to 2 mL menstruation clot in the vaginal. test was negative. ASSESSMENT AND PLAN: A 21-year-old 2, para 2 with left adnexal mass and collection of possi ble torsion. The patient was consented for operative laparoscopy, possible salpingo-oophorectomy, p ossible laparotomy. Extensive discussion with the patient and her was done through the madera slator line and she understood all the concepts. Dictated By: CRISELDA MERCEDES/CELSO Conf#: [id number] DID#: [id number]
[2017-05-17] MEDS: DOXYCYCLINE 100 MG TAB PO SCH ×2 (09:58→21:38)
--- NOTE | 2017-05-17 10:50 | OPR ---
DATE OF OPERATION: 05/16/2017 PREOPERATIVE DIAGNOSIS: Left ovarian mass, left adnexal mass and collection, possible tubo-ovarian abscess, possible ovarian torsion. POSTOPERATIVE DIAGNOSIS: Left hydrosalpinx and pelvic abscess. ANESTHESIOLOGIST: Dr. Ha. ANESTHESIA: General. COMPLICATIONS: None. ESTIMATED BLOOD LOSS: Less than 10 mL. TECHNIQUE: The patient was taken to the operating room where general anesthesia was found to be jared quate. The patient was placed in supine position. After prep and drape, a 5 cm incision was made u nderneath the umbilicus. The first trocar was inserted under direct visualization of the camera, se cond and third trocar were inserted on the left and right side of the patient under direct guidance of the camera. Then, extensive adhesions were noticed around both adnexa. Uterus is plastered to t he anterior abdominal wall and extensive lysis of adhesions done. Both ovaries and tubes were visua lized. Left side hydrosalpinx was noted and there was a collection that was copiously irrigated and drained. Using a gyrus applicator, left hydrosalpingectomy was done and it was removed and then co pious irrigation of abdominal cavity and pelvic cavity was done. Hemostasis achieved. was pl aced on top of the incisions and on top of the mesosalpinx and some parts of the omentum. Pictures taken. The gas was removed. Instruments removed. Fascia was closed in the right side incision usi ng 0 Vicryl sutures. Skin was closed using 3-0 Monocryl sutures on all 3 incisions. Dermabond was placed on top of the incision. The patient tolerated the procedure well and was transferred to hospital for special surgery very room in stable condition. There was no complication regarding this surgery. Dictated By: CRISELDA MERCEDES/CELSO Conf#: [id number] DID#: [id number]
--- NOTE | 2017-05-17 13:46 | PN ---
Date/Time of Note Date/Time of Note DATE: 05/17/17 TIME: 13:44 Assessment/Plan VTE Prophylaxis VTE Prophylaxis Intervention: ambulation Lines/Catheters IV Catheter Type (from Nrsg): Peripheral IV Assessment/Plan Assessment/Plan 21 y/o POD1 s/p lsc left salingectomy -continue routine postop care -anticipate discharge home by tomorrow with antibiotics x2 weeks Subjective 24 Hr Interval Summary Free Text/Dictation Patient without complaints. Asking to eat. Exam/Review of Systems Vital Signs Vitals Vital Signs Date Time Temp Pulse Resp B/P Pulse Ox O2 Delivery O2 Flow Rate FiO2 05/17/17 07:22 98.5 78 18 111/58 98 05/16/17 18:57 Room Air 05/16/17 17:27 8.0 Intake and Output 05/16/17 05/16/17 05/17/17 15:00 23:00 07:00 Intake Total 800 ml 110 ml 2200 ml Output Total 270 ml 1250 ml Balance 800 ml -160 ml 950 ml Exam Gen: NAD Abd: I-C/D/I Results Result Diagram: 05/16/17 0757 05/15/17 1708 Medications Medications Current Medications Morphine Sulfate 2 mg 2 mg Q4H PRN IV SEVERE PAIN LEVEL 7-10 Last administered on 05/17/17 02:18; Admin Dose 2 MG; Start 05/15/17 at 20:30 Lactated Ringer's (Lr) 1,000 ml @ 125 mls/hr Q8H IV Last administered on 02:18; Admin Dose 125 MLS/HR; Start 05/15/17 at 20:30 Doxycycline Hyclate 100 mg 100 mg BID PO Last administered on 05/17/17 09:58; Admin Dose 100 MG; Start 05/15/17 at 21:00 Cefuroxime Sodium/ Sodium Chloride (Zinacef/NS) 50 ml @ 100 mls/hr Q8 IVPB Last administered on 05/17/17 05:37; Admin Dose 100 MLS/HR; Start 05/15/17 at 22:00 Oxycodone/ Acetaminophen (Percocet (5/ 325)) 1 tab Q6 PRN PO PAIN LEVEL 1-5; Start 05/17/17 at 04:00 Oxycodone/ Acetaminophen (Percocet (5/ 325)) 2 tab Q6 PRN PO SEVERE PAIN LEVEL 7-10 Last administered on 05/17/17t 09:57; Admin Dose 2 TAB; Start 05/17/17 at 04:00 MARLY RUTH May 17, 2017 13:46
[2017-05-17 19:30] VITALS: BP 102/63; RESP 18
[2017-05-18 02:25] VITALS: BP 106/64; RESP 18
[2017-05-18] MEDS: CEFUROXIME IVPB SCH ×2 (06:08→13:37)
[2017-05-18] MEDS: SOD CHLORIDE 0.9% IVPB SCH ×2 (06:08→13:37)
[2017-05-18] MEDS: LACTATED RINGER'S 1,000 ML IV SCH ×2 (06:09→11:54)
[2017-05-18] MEDS: DOXYCYCLINE 100 MG TAB PO SCH (08:22)
[2017-05-18] MEDS: OXYCODONE/ACETAMINOPHEN (5/325) TAB PO PRN (08:22)
[2017-05-18 08:32] VITALS: BP 116/72; RESP 18
--- NOTE | 2017-05-18 14:19 | DS ---
Date/Time of Note Date/Time of Note DATE: 05/18/17 TIME: 14:13 Discharge Summary Admission/Discharge Info Admit Date/Time May 18, 2070 Hospital visit. This patient is a 21 years old 2 para 2 who came to the hospital with lower abdominal pain with the following description (A 21-year-old 2, para 2 with left adnexal mass and collection of possible torsion. The patient was consented for operative laparoscopy, possible salpingo-oophorectomy, possible laparotomy. Extensive discussion with the patient and her was done through the rivet tapping machine operator line and she understood all the concepts.) She subsequently underwent a laparoscopy and removal left hydro-salpinx with irrigation of the peritoneal cavity due to infection . Current Medications Medications (Trade) Dose Ordered Sig/Ravi Route PRN Reason Start Time Stop Time Status Last Admin Dose Admin IV Flush 10 ml 10 ml STK-MED ONCE .ROUTE 05/15/17 18:24 05/15/17 18:25 DC 05/15/17 18:31 Sodium Chloride (NS) 100 ml @ ud STK-MED ONCE .ROUTE 05/15/17 18:24 05/15/17 18:25 DC 05/15/17 18:31 Iohexol (Omnipaque 300mg/ ml) 150 ml STK-MED ONCE .ROUTE 05/15/17 18:24 05/15/17 18:25 DC 05/15/17 18:32 Acetaminophen (Tylenol Tab) 1,000 mg ONCE STAT PO 05/15/17 20:25 05/15/17 20:27 DC 05/15/17 20:33 IV Flush (NS 3 ml) 3 ml PER PROTOCOL IV 05/15/17 20:30 Morphine Sulfate 2 mg 2 mg Q4H PRN IV SEVERE PAIN LEVEL 7-10 05/15/17 20:30 05/17/17 17:39 Lactated Ringer's (Lr) 1,000 ml @ 125 mls/hr Q8H IV 05/15/17 20:30 05/18/17 06:09 Doxycycline Hyclate 100 mg 100 mg BID PO 05/15/17 21:00 05/18/17 08:22 Cefuroxime Sodium/ Sodium Chloride (Zinacef/NS) 50 ml @ 100 mls/hr Q8 IVPB 05/15/17 22:00 05/18/17 06:08 Vitamin A/Vitamin D (Vitamin A & D Oint) 1 applic STK-MED ONCE TOP 05/15/17 22:59 05/15/17 23:00 DC Hydromorphone HCl (Dilaudid (Rec)) 0.2 mg PACU ORDER PRN IV MILD PAIN LEVEL 1-3 05/16/17 14:30 05/16/17 21:00 DC Hydromorphone HCl (Dilaudid (Rec)) 0.4 mg PACU ORDER PRN IV MODERATE PAIN LEVEL 4-6 05/16/17 14:30 05/16/17 21:00 DC Fentanyl (Sublimaze) 25 mcg PACU ORDER PRN IV MILD PAIN LEVEL 1-3 05/16/17 14:30 05/16/17 21:00 DC Oxycodone/ Acetaminophen (Percocet (5/ 325)) 1 tab PACU ORDER PRN PO PAIN LEVEL 1-5 05/16/17 14:30 05/16/17 21:00 DC Oxycodone/ Acetaminophen (Percocet (5/ 325)) 2 tab PACU ORDER PRN PO PAIN LEVEL 6-10 05/16/17 14:30 05/16/17 21:00 DC 05/16/17 18:56 Ondansetron HCl (Zofran Inj) 4 mg PACU ORDER PRN IV NAUSEA AND/OR VOMITING 05/16/17 14:30 05/16/17 21:00 DC Prochlorperazine (Compazine Inj) 5 mg PACU ORDER PRN IV NAUSEA AND/OR VOMITING 05/16/17 14:30 05/16/17 21:00 DC Meperidine HCl (Demerol) 25 mg PACU ORDER PRN IV POST-OP RIGORS 05/16/17 14:30 05/16/17 21:00 DC Diphenhydramine HCl (Benadryl) 25 mg PACU ORDER PRN IV PRURITUS 05/16/17 14:30 Lidocaine (Xylocaine 2% (Sdv)) 100 mg STK-MED ONCE .ROUTE 05/16/17 14:45 05/16/17 14:46 DC Succinylcholine Chloride 100 mg 100 mg STK-MED ONCE IV 05/16/17 14:45 05/16/17 14:46 DC Propofol (Diprivan) 20 ml @ ud STK-MED ONCE .ROUTE 05/16/17 14:45 05/16/17 14:46 DC Midazolam HCl (Versed) 2 mg STK-MED ONCE .ROUTE 05/16/17 14:45 05/16/17 14:46 DC Fentanyl (Sublimaze) 100 mcg STK-MED ONCE .ROUTE 05/16/17 14:45 05/16/17 14:46 DC Ondansetron HCl (Zofran Inj) 4 mg STK-MED ONCE .ROUTE 05/16/17 15:51 05/16/17 15:52 DC Metoclopramide HCl (Reglan) 10 mg STK-MED ONCE .ROUTE 05/16/17 15:51 05/16/17 15:52 DC Phenylephrine HCl (Waqas-Synephrine Inj Syg) 500 mcg STK-MED ONCE .ROUTE 05/16/17 15:59 05/16/17 16:00 DC Rocuronium [place] (Zemuron) 50 mg STK-MED ONCE .ROUTE 05/16/17 16:00 05/16/17 16:01 DC Fentanyl (Sublimaze) 100 mcg STK-MED ONCE .ROUTE 05/16/17 16:13 05/16/17 16:14 DC Dexamethasone (Decadron) 4 mg STK-MED ONCE .ROUTE 05/16/17 16:36 05/16/17 16:37 DC Sugammadex Sodium (Bridion) 200 mg STK-MED ONCE IV 05/16/17 16:43 05/16/17 16:44 DC Gelatin (Surgifoam Kit) 1 gm STK-MED ONCE .ROUTE 05/16/17 16:44 05/16/17 16:45 DC 05/16/17 16:50 Thrombin (Thrombin) 5,000 units STK-MED ONCE .ROUTE 05/16/17 16:44 05/16/17 16:45 DC 05/16/17 16:50 Oxycodone/ Acetaminophen (Percocet (5/ 325)) 1 tab Q6 PRN PO PAIN LEVEL 1-5 05/17/17 04:00 Oxycodone/ Acetaminophen (Percocet (5/ 325)) 2 tab Q6 PRN PO SEVERE PAIN LEVEL 7-10 05/17/17 04:00 05/18/17 08:22 Vitamin A/Vitamin D (Vitamin A & D Oint) 1 applic STK-MED ONCE TOP 05/17/17 07:44 05/17/17 07:45 DC Discharge Date/Time Discharge Diagnosis . On examination today she is a very comfortable not much of the pain no CVA tenderness no fever and she was discharged home to rest at home and then to do follow-up with her shank taper in the clinic a prescription was given for Keflex 500 mg tablet to be taken every 8 hours as well as Tylenol and Motrin for pain control I explained to her that she has to do follow-up with her secondary school teacher to ensure complete recovery End of dictation . Patient Condition: Stable Hospital Course Diagnostic laparoscopy would be an appropriate choice Home Meds Active Scripts Acetaminophen* (Tylophen*) 500 Mg Capsule, 1 CAP PO Q6H Y for PAIN AND OR ELEVATED TEMP, #20 CAP Prov:DHAVAL GUIDO GUM REMOVER 05/14/17 Reported Medications Multivit/Min/Fol Ac/Iron/Pren* ( S*) 1 Tab Tab, 1 TAB PO DAILY, TAB 07/27/16 Primary Care Provider MD JOSIAH Clark HESHMAT MD May 18, 2017 14:18
== END 2017-05-18 14:10 | disposition home or self-care (01) | DRG 743 ==
LOC: FTE 13:51 → MS1 20:42
PROC: 0UN94ZZ Release Uterus, Percutaneous Endoscopic Approach (ICD-10-PCS; 2017-05-16)
PROC: 0W9J4ZZ Drainage of Pelvic Cavity, Percutaneous Endoscopic Approach (ICD-10-PCS; 2017-05-16)
PROC: 0UT64ZZ Resection of Left Fallopian Tube, Percutaneous Endoscopic Approach (ICD-10-PCS; principal; 2017-05-16 15:00)
DX: N70.93 Salpingitis and oophoritis, unspecified (principal); N73.6 Female pelvic peritoneal adhesions (postinfective)
CPT/HCPCS: 74177; 76830; 76856; 80053; 81001; 85025; 88305; 96365; J1100; J2250; J2270; J2370; J2405; J2765; J3010; J7120; J7999; Q9967

== ENCOUNTER 2017-08-16 14:59 | Emergency (ER) | END 2017-08-16 20:13 | disposition home or self-care (01) ==

== ENCOUNTER 2018-07-06 13:44 | Emergency (ER) | END 2018-07-06 16:49 | disposition home or self-care (01) ==